=== PATIENT | female | born 1980 | race Native Hawaiian/Other Pacific Islander ===

== ENCOUNTER 2019-01-12 08:10 | Outpatient (CLI) | payer OTHER | END 2019-01-12 08:11 | disposition home or self-care (01) | LOC: DI 08:10 | PROVIDERS: ATTEND Family Medicine | DX: R60.0 Localized edema (principal); I51.7 Cardiomegaly | CPT/HCPCS: 93306 ==

== ENCOUNTER 2019-12-07 18:58 | Emergency (ER) | payer OTHER ==
--- NOTE | 2019-12-07 19:58 | ED Physician Documentation ---
PD HPI URI - Stated complaint Stated Complaint: THROAT SWELLING, COUGH - Chief complaint Chief Complaint: Heent - History obtained from History obtained from: Patient - History of Present Illness Timing - onset: How many days ago (2-3) Timing duration: Days (2-3) Timing details: Gradual onset, Still present Associated symptoms: Chills, Nasal congestion, Sore throat, Dry cough, Dyspnea (feeling of swelling back of throat and having dyspnea the past few days, increasing) Contributing factors: No: Sick contact, Immunocompromised, COPD / asthma Similar symptoms before: Has not had sx before Recently seen: Not recently seen Review of Systems Constitutional: reports: Chills, Myalgias. denies: Fever Nose: reports: Rhinorrhea / runny nose, Congestion Throat: reports: Sore throat Cardiac: denies: Chest pain / pressure Respiratory: reports: Cough (mild). denies: Wheezing GI: denies: Nausea, Vomiting, Diarrhea PD PAST MEDICAL HISTORY - Past Medical History Past Medical History: Yes Cardiovascular: None Respiratory: None Neuro: None Endocrine/Autoimmune: None Musculoskeletal: Other Other Past Medical History: R foot fascitis - Past Surgical History Past Surgical History: No - Present Medications Home Medications: Ambulatory Orders Medication Instructions Recorded Confirmed Benzonatate [Tessalon Perle] 100 mg PO TID PRN #20 capsule 12/07/19 Cetirizine [ZyrTEC] 10 mg PO DAILY #15 tablet 12/07/19 Meloxicam 1 tab PO DAILY 12/07/19 12/07/19 dexAMETHasone [Decadron] 4 mg PO DAILY #6 tablet 12/07/19 - Allergies Allergies/Adverse Reactions: Allergies Allergy/AdvReac Type Severity Reaction Status Date / Time guaifenesin [From Robitussin] Allergy Edema Verified 12/07/19 19:10 - Social History Does the pt smoke?: No Smoking Status: Never smoker Does the pt drink ETOH?: No Does the pt have substance abuse?: No - Immunizations Immunizations are current?: Yes - POLST Patient has POLST: No PD ED PE NORMAL - Vitals Vital signs reviewed: Yes - General General: Alert and oriented X 3, No acute distress, Well developed/nourished - HEENT HEENT: Ears normal, Moist mucous membranes, Pharynx benign - Neck Neck: Supple, no meningeal sign, No adenopathy - Cardiac Cardiac: RRR, No murmur - Respiratory Respiratory: Clear bilaterally - Abdomen Abdomen: Soft, Non tender - Derm Derm: Normal color, Warm and dry Results - Vitals Vitals: Vital Signs - 24 hr 12/07/19 12/07/19 12/07/19 19:10 20:05 20:54 Temperature 36.8 C 37.1 C 37 C Heart Rate 77 88 Respiratory 20 16 Rate Blood Pressure 107/89 H 133/89 H O2 Saturation 98 99 Oxygen O2 Source Room air - Labs Labs: Laboratory Tests 12/07/19 19:48 Group A Strep Rapid Negative PD MEDICAL DECISION MAKING - ED course Complexity details: considered differential, d/w patient Departure - Departure Disposition: Home, Self Care Clinical Impression: Swollen throat Upper respiratory infection Qualifiers: URI type: unspecified URI Qualified Code(s): J06.9 - Acute upper respiratory infection, unspecified Condition: Stable Record reviewed to determine appropriate education?: Yes Instructions: ED Upper Resp Infec No Abx Tx Follow-Up: Prachi Triplett MD [Primary Care Provider] - Prescriptions: Benzonatate [Tessalon Perle] 100 mg PO TID PRN #20 capsule PRN Reason: Cough Cetirizine [ZyrTEC] 10 mg PO DAILY #15 tablet dexAMETHasone [Decadron] 4 mg PO DAILY #6 tablet Comments: Sounds likely to be a viral illness with some subsequent inflammation in the throat. Stay well-hydrated. Tylenol if needed for aches or fevers. Continue your albuterol inhaler 2 puffs 4 times a day as needed for wheeziness or some trouble breathing. Decadron steroid daily for 5 to 6 days to help reduce the inflammation and swelling. Also use antihistamine cetirizine long-acting daily for a week. Add Benadryl every 6 hours if needed for itchiness or congestion, and benzonatate if needed for cough. Recheck if not improved well over the next few days. Return if worsening swelling or trouble breathing. Discharge Date/Time: 12/07/19 20:54
[2019-12-07 20:00] LABS: RAPID STREP SCREEN Negative (Negative)
[2019-12-07] MEDS ORDERED: diphenhydrAMINE 25 MG CAPSULE PO STA (20:35)
[2019-12-07] MEDS ORDERED: DEXAMETHASONE 10 MG/ML VIAL PO STA (20:35)
[2019-12-07] MEDS ORDERED: CETIRIZINE 10 MG TABLET PO STA (20:35)
[2019-12-07] MEDS ORDERED: CHERRY SYRUP 10 ML UDC PO ONE (20:35)
[2019-12-07] MEDS ORDERED: BENZONATATE 100 MG CAPSULE PO STA (20:35)
[2019-12-07 20:54] VITALS: BP 133/89
== END 2019-12-07 20:54 | disposition home or self-care (01) ==
LOC: ED 18:58
DX: R22.1 Localized swelling, mass and lump, neck (principal); J06.9 Acute upper respiratory infection, unspecified
CPT/HCPCS: 87070; 87430; 99283; A9270

== ENCOUNTER 2022-01-26 10:38 | Outpatient (CLI) | payer OTHER ==
--- NOTE | 2022-01-28 06:40 | Mammography Report ---
BILATERAL DIGITAL SCREENING MAMMOGRAM 3D/2D: 01/26/2022 CLINICAL: Baseline exam. Routine screening. No prior exams were available for comparison. The tissue of both breasts is predominantly fatty. There is a possible low density asymmetry with a spiculated margin in the left breast middle depth ce ntral to the nipple seen on the craniocaudal view only. No other significant masses, calcifications, or other findings are seen in either breast. IMPRESSION: INCOMPLETE: NEEDS ADDITIONAL IMAGING EVALUATION The possible low density asymmetry in the left breast is indeterminate. Additional views with possib le ultrasound are recommended. This exam was interpreted at Station ID: [id number]. NOTE: For mammograms, a report in lay terms will be sent to the patient. Approximately 15% of breast malignancies will not be visualized mammographically. In the management of a palpable breast mass, a negative mammogram must not discourage biopsy of a clinically suspicious lesion. Electronically Signed By: Dasha [email or web address]:01/26/2022 12:53:11 ACR BI-RADS Category 0: Incomplete 3340F PARENCHYMAL PATTERN: (F) - The breast(s) demonstrate(s) diffuse fatty replacement. BI-RADS CATEGORY: (0) - 0 Mammo and [place] [id number] Immediate follow-up LATERALITY: (B)
== END 2022-01-26 10:39 | disposition home or self-care (01) ==
LOC: DI.N 10:38
DX: Z12.31 Encounter for screening mammogram for malignant neoplasm of breast (principal); R92.8 Other abnormal and inconclusive findings on diagnostic imaging of breast